=== PATIENT | male | born 1985 | race Caucasian/White ===

== ENCOUNTER → 2022-08-27 07:13 | Outpatient (CLI) | payer OTHER, SELFPAY ==
[2022-08-27 08:06] LABS: Add Manual Diff / Slide Review NO; Basophils Absolute Auto 100 /uL (0-100); Basophils Percent Auto 0.8 % (0-2); Eosinophils Absolute Auto 200 /uL (0-450); Eosinophils Percent Auto 2.4 % (2-4); Hematocrit 44.7 % (41-53); Hemoglobin 15.2 g/dL (13.5-17.5); Lymphocytes Absolute Auto 2100 /uL (1100-4500); Lymphocytes Percent Auto 28.2 % (25-40); Mean Corpuscular HGB Conc 33.9 % (30-36); Mean Corpuscular Volume 85.6 fL (80-100); Monocytes Absolute Auto 600 /uL (0-900); Monocytes Percent Auto 8.6 % (3-14); Neutrophils Absolute Auto 4400 /uL (1500-7000); Platelet Count 301 X10^3/uL (150-400); Red Blood Cell Count 5.22 X10^6/uL (4.5-5.9); Red Cell Distribution Width 12.9 % (11.6-14.8); White Blood Cell Count 7.3 X10^3/uL (4.5-11.0)
[2022-08-27 08:26] LABS: Alanine Aminotransferase 26 IU/L (<50); Albumin 4.1 g/dL (3.5-5.0); Albumin Globulin Ratio 1.4 (1.0-2.8); Alkaline Phosphatase 67 U/L (38-126); Aspartate Aminotransferase 24 IU/L (17-59); BUN Creatinine Ratio 12.6 (6-22); Bilirubin Total 0.5 mg/dL (0.2-1.3); Blood Urea Nitrogen 13 mg/dL (9-20); Calcium 9.2 mg/dL (8.4-10.2); Carbon Dioxide 28 mmol/L (22-32); Chloride 102 mmol/L (98-107); Cholesterol 161 mg/dL (140-199); Estimated Glomerular Filt Rate > 60 mL/min (>60); Globulin 2.9 g/dL (1.7-4.1); Glucose 94 mg/dL (70-100); HDL Cholesterol 28 mg/dL (40-60); HEMOLYSIS < 15 (0-50); LDL Cholesterol Calculated 101 mg/dL (<100); Potassium 4.2 mmol/L (3.4-5.1); Sodium 139 mmol/L (137-145); Triglycerides 159 mg/dL (35-150)
== END ==
PROVIDERS: PCP Family Medicine; Referring Provider Family Medicine; Visit Provider Family Medicine
DX: E78.5 Hyperlipidemia, unspecified (principal)
CPT/HCPCS: 36415; 80053; 80061; 85025

== ENCOUNTER 2022-12-09 07:07 | Emergency (ER) | payer OTHER, SELFPAY ==
[2022-12-09 07:29] VITALS: BP 132/78; PULSE 77; RESP 18; TEMP 36.8; O2SAT 99; BMI 26.4
--- NOTE | 2022-12-09 07:36 | ED.NECK ---
HPI - Neck Pain/Injury General Chief Complaint: Neck Pain/Injury Stated Complaint: internal neck pain T-4 Time Seen by Provider: 12/09/22 07:19 Source: patient Mode of arrival: Family Vehicle Limitations: no limitations History of Present Illness HPI Narrative: Patient is an otherwise healthy 37-year-old male who is here for evaluation of a swelling to the left side of his neck. It has been there for the past 4 days. It is somewhat tender to palpation. He thinks that maybe a lymph node. He denies fevers, sore throat, ear pain, problems breathing or other upper respiratory tract infection like symptoms. Has not tried anything for symptoms prior to arrival. Related Data Home Medications Medication Instructions Recorded Confirmed No Known Home Medications 06/20/22 06/20/22 Allergies Allergy/AdvReac Type Severity Reaction Status Date / Time No Known Drug Allergies Allergy Unverified 06/20/22 09:09 Review of Systems Eyes Eyes: Reports system reviewed and no additional complaints, except as documented ENT Ears, Nose, Mouth, and Throat: Reports system reviewed and no additional complaints, except as documented Respiratory Respiratory: Reports system reviewed and no additional complaints, except as documented Integumentary/Breasts Skin/Breast: Reports system reviewed and no additional complaints, except as documented Patient History Medical History Borderline hyperlipidemia Social History Smoking Status: Never smoker alcohol intake: current (2 drinks per month ) substance use type: does not use Smoking Status: Never smoker alcohol intake frequency: holidays/special occasions only Substance Use Type: does not use Exam Initial Vital Signs Initial Vital Signs: Vital Signs Temperature 98.2 F 12/09/22 07:29 Pulse Rate 77 12/09/22 07:29 Respiratory Rate 18 12/09/22 07:29 Blood Pressure 132/78 12/09/22 07:29 Pulse Oximetry 99 12/09/22 07:29 Oxygen Delivery Method 12/09/22 07:29 HENMT Head: normal to inspection and normocephalic Ears: TM's normal bilaterally Mouth: oral mucosae normal and moist mucous membranes Throat: posterior oropharynx normal Neck Lymphatic: lymphadenopathy (Left-sided submandibular lymphadenopathy) Skin General: no rashes or lesions noted Neuro General: patient alert, patient awake, patient oriented x3 and moves all extremities Speech: speech normal Extrem General: normal to inspection and capillary refill normal Course Vital Signs Vital signs: Vital Signs - 8 hr 12/09/22 07:29 Temperature 98.2 F Pulse Rate 77 Respiratory Rate 18 Blood Pressure 132/78 Pulse Oximetry 99 Oxygen Delivery Method Room Air MDM - Neck Pain/Injury Differential Diagnosis Differential diagnosis: Likely other (Lymphadenopathy, cancer, abscess and others) MDM Narrative Medical decision making narrative: History and physical exam is consistent with left-sided submandibular lymphadenopathy. No specific source of infection found. No indication for antibiotics. Provided reassurance to the patient. We did discuss return precautions and follow-up instructions. He expressed understanding and agreement. Discharge Plan Departure Patient Disposition: Home Clinical Impression: Lymphadenopathy Instructions: DI for Lymphadenopathy Activity Restrictions/Additional Instructions: High Would suspect improvement of your symptoms over the next couple days. You can take Tylenol or ibuprofen needed. Sometimes warm compresses will help. Return to the emergency department for new or worsening symptoms. Prescriptions: No Action No Known Home Medications Referrals: Jose Donahue DO [Primary Care Provider] - Stand Alone Forms: Patient Portal/API
== END 2022-12-09 07:47 | disposition home or self-care (01) ==
PROVIDERS: Emergency Provider Emergency Medicine; PCP Family Medicine
DX: R59.1 Generalized enlarged lymph nodes (principal)
CPT/HCPCS: 99281

== ENCOUNTER 2023-02-21 20:21 | Emergency (ER) | payer OTHER, SELFPAY ==
[2023-02-21 20:30] VITALS: BP 154/92; PULSE 83; RESP 20; TEMP 36.7; O2SAT 100; BMI 26.4
--- NOTE | 2023-02-21 20:38 | DI.RAD.S_ITS ---
PROCEDURE: XR FOOT RT MIN 3V INDICATIONS: pain and swelling due to fall TECHNIQUE: 3 views of the foot were acquired. COMPARISON: None. FINDINGS: Bones: No dislocations. No suspicious bony lesions. There is a definite transverse fracture across the base of the 4th metatarsal bone, and almost certainly an additional fracture is present but more subtle across the base of the 3rd metatarsal bone. Soft tissues: No tibiotalar joint effusion. Achilles tendon appears normal. IMPRESSION: Transverse fractures at the base of the 3rd and 4th metatarsal bones. Dictated by: Onel Baker M.D. on 02/21/2023 at 20:58 Approved by: Onel Baker M.D. on 02/21/2023 at 21:00
--- NOTE | 2023-02-21 21:06 | ED.LOWEXIN ---
HPI - Extremity Injury (Lower) General Chief Complaint: Extremity Injury, Lower Stated Complaint: GLF R foot injuried 30min ago Time Seen by Provider: 02/21/23 21:06 Source: patient Mode of arrival: Wheelchair History of Present Illness HPI Narrative: This is a healthy 37-year-old male who was walking up his steps at home, he states fell backwards as his 3 children were sort of running around him he tried to [place] and not step on his youngest who is about a year old and fell backwards. He landed on his buttocks. He has pain in his right foot. He has a little bit of tailbone pain but states it is mild. Denies hitting his head, no headache, no neck pain, no back pain. No chest pain shortness of breath. States was not knocked out. No other GI or urinary symptoms. Patient denies any numbness or tingling. No weakness. He has pain with weight-bearing and swelling over the dorsum of the foot. Patient states no daily medications. No known drug allergies. No tobacco, alcohol or illicit. Related Data Previous Rx's Medication Instructions Recorded hydrocodone 5 mg-acetaminophen 325 1 tab PO Q6H PRN pain #10 tabs 02/21/23 mg tablet Allergies Allergy/AdvReac Type Severity Reaction Status Date / Time No Known Drug Allergies Allergy Unverified 01/08/23 15:25 Review of Systems Review of Systems ROS Unobtainable: All systems reviewed & are unremarkable except as noted in HPI and below Patient History Medical History Borderline hyperlipidemia Social History Smoking Status: Never smoker alcohol intake: current (2 drinks per month ) substance use type: does not use Smoking Status: Never smoker alcohol intake frequency: other Substance Use Type: does not use Exam Narrative Exam Narrative: GENERAL: Alert and oriented x three, well-appearing male in mild distress. HEENT: Head normocephalic, atraumatic, EOMI, pupils reactive, face symmetric, moist mucous membranes NECK: Supple, full range of motion CARDIOVASCULAR: Regular rate and rhythm without murmurs, rubs or gallops. RESPIRATORY: Breath sounds equal bilaterally, no wheezes rales or rhonchi. ABDOMEN: Soft, nontender. Normoactive bowel sounds all 4 quadrants. No guarding or rebound, rigidity, no mass : No CVA tenderness EXTREMITIES: Normal range of motion, no clubbing. Patient has swelling over the dorsum of the foot. No ecchymosis. The compartment is not tight. Patient has pain over the 3rd and 4th metatarsals. He has no tenderness of the right thigh, knee, tib-fib or lateral malleoli. No tenderness over each toe. He is sensation in each toe and throughout his foot. Cap refills less than 2 seconds in all 5 toes. No other discoloration there is some slight erythema. Neurovascularly intact NEUROLOGICAL: Cranial nerves II through XII grossly intact. Moving all extremities SKIN: Warm, dry, no petechiae, no rashes or lesions. Initial Vital Signs Initial Vital Signs: Vital Signs Temperature 98.1 F 02/21/23 20:30 Pulse Rate 83 02/21/23 20:30 Respiratory Rate 20 02/21/23 20:30 Blood Pressure 154/92 H 02/21/23 20:30 Pulse Oximetry 100 02/21/23 20:30 Oxygen Delivery Method Room Air 02/21/23 20:30 Course Orders Ordered: ED Orders 02/21/23 20:38 XR foot RT min 3V Stat Discontinued Medications Acetaminophen (Acetaminophen 325 Mg Tablet) 975 mg PO NOW ONE Stop: 02/21/23 21:20 Last Admin: 02/21/23 21:24 Dose: 975 mg Documented By: RAFA Hydrocodone Bitart/Acetaminophen (Hydrocodone/Acet 5/325 Prepack) 1 bottle MISC SEEINSTR ONE Stop: 02/21/23 21:34 Last Admin: 02/21/23 21:48 Dose: 1 bottle Documented By: RAFA Vital Signs Vital signs: Vital Signs - 8 hr 02/21/23 20:30 02/21/23 21:59 Temperature 98.1 F Pulse Rate 83 80 Respiratory Rate 20 20 Blood Pressure 154/92 H 136/88 Pulse Oximetry 100 98 Oxygen Delivery Method Room Air Room Air MDM - Extremity Injury (Lower) Imaging Data Extremity x-ray #1: Radiologist's Impression: Close Foot X-Ray (Signed) Onel Baker - 02/21/23 Launch?[address] [address] XRay Report Signed Patient: Onel Marti MR#: [id number] : 1985 Acct:[id number] Age/Sex: 37 / M Date of Service: 02/21/23 Loc: ED Accession Number: [id number] ?? Procedure: XR foot RT min 3V Ordering Provider: Margaret Man D.O. PROCEDURE:? XR FOOT RT MIN 3V ? INDICATIONS:? pain and swelling due to fall ? TECHNIQUE:? 3 views of the foot were acquired.? ? COMPARISON:? None. ? FINDINGS:? ? Bones:? No dislocations.? No suspicious bony lesions.? There is a definite transverse fracture across the base of the 4th metatarsal bone, and almost certainly an additional fracture is present but more subtle across the base of the 3rd metatarsal bone. ? Soft tissues:? No tibiotalar joint effusion.? Achilles tendon appears normal.? ? ? IMPRESSION:? Transverse fractures at the base of the 3rd and 4th metatarsal bones. ? ? Dictated by: Onel Baker M.D. on 02/21/2023 at 20:58 ? ? Approved by: Onel Baker M.D. on 02/21/2023 at 21:00?? MDM Narrative Medical decision making narrative: This is a 37-year-old healthy male who had a fall down several stairs. Landed on his buttocks and sort of slid with his foot backwards. Patient's foot x-ray shows 3rd and 4th metatarsal fracture without displacement, patient is neurovascularly intact he has swelling but no signs of compartment syndrome foot is soft and has good cap refill with normal sensation throughout. Patient has some mild tailbone pain but states it is minimal. Patient case was discussed with Dr. Briceno from Orthopedic surgery. He recommends follow up with Dr. Puga, ortho boot, toe-touch weight-bearing and pain control. Patient is to call for follow-up appointment. Discharge Plan Departure Patient Disposition: Home Clinical Impression: Closed fracture of third metatarsal bone, Closed fracture of fourth metatarsal bone Instructions: DI for Foot Fracture Activity Restrictions/Additional Instructions: Please follow-up with orthopedic surgery, call Thursday morning to set up an appointment. You can take Tylenol up to a 1000 mg every 6 hours, if in adequate for pain you can take Porter (1 tablet has 325mg tylenol in it) instead of Tylenol but not at the same time. Maximum amount of Tylenol or acetaminophen in 24 hours is 4000 mg. You may take Porter 1-2 tablets every 6 hours needed for pain. This medication can make you sleepy do not drive, perform hazardous activities or make any major decisions while taking it. This medication will make you constipated please take a stool softener once to twice daily until stools are soft and regular. Prescription sent to [facility]. Splint Care: Keep splint clean and dry. Elevated affected body part to decrease swelling. OK to use ice pack on the affected body part. Use for 15-20 minutes each time, for 5-6x per day. If you develop worsening pain, numbness, tingling, discoloration of the affected body part, loosen the splint by loosening the EULA wrap, and either see your doctor for an urgent re-assessment, or return to the Emergency Department. Return to the Emergency Department for any new or worsening symptoms. Prescriptions: New hydrocodone-acetaminophen 5-325 mg tablet 1 tab PO Q6H PRN (Reason: pain) Qty: 10 0RF Referrals: Hayley Porter MD [Physician] - Jose Donahue DO [Primary Care Provider] - Stand Alone Forms: Patient Portal/API, Work Release Note
[2023-02-21] MEDS: ACETAMINOPHEN 325 MG TABLET 975 MG PO (21:24)
[2023-02-21] MEDS: HYDROCODONE/ACET 5/325 PREPACK 1 BOTTLE MISC (21:48)
[2023-02-21 21:59] VITALS: BP 136/88; PULSE 80; RESP 20; O2SAT 98
--- NOTE | 2023-02-22 13:09 | PC.NURSE ---
Returned phone call to pt who had questions about pain control, tylenol and prescribed pain medication. Reviewed instructions w/ verbalized understanding. Encouraged to return if any concerns, worsening and f/u as needed and indicated.
== END 2023-02-21 22:02 | disposition home or self-care (01) ==
PROVIDERS: Emergency Provider Emergency Medicine; PCP Family Medicine
DX: S92.331A Displaced fracture of third metatarsal bone, right foot, initial encounter for closed fracture (principal); S92.341A Displaced fracture of fourth metatarsal bone, right foot, initial encounter for closed fracture; W10.9XXA Fall (on) (from) unspecified stairs and steps, initial encounter
CPT/HCPCS: 73630; 99283; 99284

== ENCOUNTER → 2023-03-04 06:45 | Outpatient (CLI) | payer OTHER, SELFPAY ==
--- NOTE | 2023-03-04 07:04 | DI.CT.S_ITS ---
PROCEDURE: CT FOOT RIGHT WITHOUT CON INDICATIONS: LISFRANC INJURY/SURGERY PLANNING TECHNIQUE: Noncontrast 1-1.5 mm axial sections acquired from above the tibiotalar joint to the bottom of the calcaneus, with coronal and sagittal reformats. COMPARISON: [facility], CR, XR FOOT RT MIN 3V, 02/21/2023, 20:35. [facility], CR, XR FOOT 3 VIEWS WEIGHT BEARING RIGHT, 02/24/2023, 9:21. FINDINGS: Image quality: Excellent. Bones: Transverse fracture involving plantar aspect of 2nd metatarsal base is seen with minimal inferior displacement at fracture site. Comminuted fracture involving 3rd metatarsal base is seen with fracture line extending to 3rd TMT joint space and slight dorsal and inferior displacement of fractured fragments. There is also an oblique fracture in through 4th metatarsal base with fracture line extending to 4th TMT joint space and minimal medial displacement of fractured fragment. No other fracture or dislocation is seen. No suspicious bony lesions. Soft tissues: Significant soft tissue edema and swelling over dorsal aspect of 2nd through 4th metatarsal bases are seen. No abnormal soft tissue calcifications. No full-thickness extensor or flexor tendon rupture. Peroneus tendons are grossly intact. IMPRESSION: 1. Acute fractures involving 2nd through 4th metatarsal bases as described in detail above. 2. No dislocation. No suspicious intraosseous lesion. 3. Mild soft tissue swelling over dorsal aspect of 2nd through 4th metatarsal bases. No abnormal soft tissue calcifications. Dictated by: Sp Foster M.D. on 03/04/2023 at 12:09 Approved by: Sp Foster M.D. on 03/04/2023 at 12:12
== END ==
PROVIDERS: PCP Family Medicine; Referring Provider Orthopaedic Surgery Foot and Ankle Surgery; Visit Provider Orthopaedic Surgery Foot and Ankle Surgery
DX: S92.321A Displaced fracture of second metatarsal bone, right foot, initial encounter for closed fracture (principal); S92.331A Displaced fracture of third metatarsal bone, right foot, initial encounter for closed fracture; S92.341A Displaced fracture of fourth metatarsal bone, right foot, initial encounter for closed fracture; M79.89 Other specified soft tissue disorders; X58.XXXA Exposure to other specified factors, initial encounter
CPT/HCPCS: 73700

== ENCOUNTER 2023-03-13 09:42 | Day surgery (SDC) | payer OTHER, SELFPAY ==
[2023-03-10 15:13] VITALS: BMI 26.4
--- NOTE | 2023-03-13 | DI.RAD.S_ITS ---
PROCEDURE: XR FOOT RT 2V INDICATIONS: ORIF RT FOOT TECHNIQUE: 3 views of the foot were acquired. COMPARISON: [facility], CR, XR FOOT 3 VIEWS WEIGHT BEARING RIGHT, 02/24/2023, 9:21. FINDINGS: Intraoperative C-arm images demonstrate ORIF of 2nd and 3rd metatarsal bases with placement of surgical fixation plate and multiple associated fixation screws. IMPRESSION: Intraoperative imaging during placement of fixation hardware at the 2nd and 3rd metatarsal bases. Dictated by: Mike ESPINOSA Interpreted: Karen Pennington MD on 03/13/2023 at 13:24 Approved by: Karen Pennington M.D. on 03/13/2023 at 15:51
[2023-03-13 09:55] VITALS: BP 118/78; PULSE 66; RESP 20; TEMP 36.6; O2SAT 97; BMI 26.4
[2023-03-13] MEDS: LACTATED RINGERS 1,000 ML 42 ML IV (10:27)
[2023-03-13] MEDS: ACETAMINOPHEN 325 MG TABLET 975 MG PO (10:28)
[2023-03-13] MEDS: PREGABALIN 75 MG CAPSULE PO (10:28)
--- NOTE | 2023-03-13 11:21 | PM.PREOP ---
Pre-operative Note Interval Note History & Physical reviewed/Exam performed by Physician: Yes Changes to H&P: No
[2023-03-13] MEDS: MIDAZOLAM 2 MG/2 ML VIAL IV (11:34)
--- NOTE | 2023-03-13 11:40 | SUR.PREOP ---
nerve block time out 1133, start time 1134, end time 1137.
[2023-03-13] MEDS: CEFAZOLIN 2 GM/100 ML PREMIX 100 ML IV (11:50)
[2023-03-13] MEDS: THROMBIN (RECOMBINANT) 5,000 UNIT VIAL 5000 UNIT TOP (13:13)
[2023-03-13] MEDS: BUPIVACAINE 0.25% (PF) 30 ML, EPINEPHrine 0.15 MG INJ (13:57)
[2023-03-13 14:10] VITALS: BP 114/77; PULSE 74; RESP 16; TEMP 36.3; O2SAT 99
[2023-03-13 14:16] VITALS: BP 115/77; PULSE 78; RESP 16; O2SAT 98
[2023-03-13 14:27] VITALS: BP 114/77; PULSE 82; RESP 16; TEMP 36.3; O2SAT 98
[2023-03-13 14:39] VITALS: BP 122/82; PULSE 78; RESP 16; TEMP 36.4; O2SAT 99
--- NOTE | 2023-03-13 14:39 | P.OP_ITS ---
Operative Date/Time/Diagnoses Date of procedure: 03/13/23 Time of procedure: 14:40 Pre-op diagnosis: Dislocation tarsometatarsal joint right foot Closed displaced fracture intra-articular 2nd metatarsal Closed intra-articular fracture 3rd metatarsal Closed nondisplaced intra-articular fracture 4th metatarsal All right foot Post-op diagnosis: same Procedure & Clinicians Procedure: Open reduction internal fixation right foot tarsometatarsal dislocation, Lisfranc CPT code 47617 right Open reduction internal fixation right foot 2nd metatarsal fracture CPT code 76251 Open reduction internal fixation right foot 3rd metatarsal fracture CPT code 52664 Closed treatment right 4th metatarsal fracture CPT code 38372 Same procedure as scheduled: Yes Indications: Patient is a 37-year-old male that sustained a Lisfranc variant fracture dislocation to his right foot involving fractures of the base of the 2nd 3rd and 4th metatarsals with the 2nd metatarsal fracture involving the Lisfranc ligament. Patient was indicated for stabilization of his Lisfranc fracture. The risks benefits and alternatives were discussed with the patient. We discussed ORIF and fusion. Given his young age and the fracture pattern I have recommended open reduction internal fixation. We discussed typical staged hardware removal 6 months later. The risks and benefits of the procedure have been discussed with the patient and given the opportunity to ask questions. The risks of surgery include but are not limited to infection, malunion, nonunion, persistence of pain, damage to nerves and blood vessels, posttraumatic arthritis, DVT, PE, cardiopulmonary complications and . The patient expressed a thorough understanding of the risks and benefits of surgery and has elected to proceed. Consent was signed in the office. Surgeon: Hayley Porter Click Yes if Unassisted: Yes Anesthesia Type: General, Peripheral nerve block and Local Operative Notes Findings: Instability Lisfranc articulation between the 2nd metatarsal base and medial cuneiform. Intra-articular fractures 2nd 3rd and 4th metatarsal bases. Nondisplaced 4th metatarsal base fracture. Lisfranc articulation was stabilized with a 4-0 cannulated screw. Second and 3rd metatarsal intra-articular fractures were stabilized with bridge plating using a medium Lisfranc plate from the paragon 28 set. Closure Type: primary Specimen(s): none sent Prosthetic devices, grafts, tissues, transplants, or devices: [place] 28 medium Lisfranc plate with 2.7 locking screws. 4.0 cannulated lag screw 36 mm Estimated Blood Loss (mL): 30 Blood products transfused: none Tourniquet time (min): 64 Procedure in detail: Patient was seen in the preoperative area the site of surgery was marked informed consent confirmed. The patient was brought back to the operating room by the anesthesia team. A regional block was placed by the anesthesia team for postoperative pain control. Patient was positioned in the supine position operative table. General anesthetic was administered. Bony prominences were well padded. Well-padded thigh tourniquet was placed. The operative extremity was prepped and draped in the standard sterile fashion. A formal time-out procedure was performed confirming the patient's side and site of surgery administration of appropriate preoperative antibiotic. All were in agreement. Attention turned to the right lower extremity. The Esmarch was used for exsanguination the tourniquet raised on the thigh to 250 mmHg. The C-arm was brought in and the level of the 2nd and 3rd TMT bases was marked out on the foot. An incision over the lateral aspect of the 2nd metatarsal was made lateral to the neurovascular bundle. This was dissected down carefully to the level of the joints. The 2nd and 3rd TMT joints were exposed and the proximal 3rd TMT fracture was identified and nondisplaced. The 4th TMT fracture also remained nondisplaced. Third TMT fracture into the 3rd tarsometatarsal joint did demonstrate instability on EUA as well as instability as the Lisfranc ligament on EUA. The 2nd and 3rd TMT bases were anatomically reduced and bridge plated with a medium plate from the paragon 28 tray. This was provisionally pinned with olive wires and then locking screws were placed. Once this was completed attention was turned to the Lisfranc articulation between the 2nd TMT base and medial cuneiform. The lewis fracture was plantar not exposed. A large Carson clamp was used to reduce the Lisfranc articulation then a wire from the cannulated screw set was drilled across and measured and a 4-0 cannulated screw was placed in a lag technique from the 2nd metatarsal base to the medial cuneiform. This was checked in multiple planes. Once this was complete attention again returned to the 4th metatarsal base fracture which were maintained in nondisplaced alignment and was treated closed. At this point the tourniquet was released. Hemostasis was achieved. There was some bleeding from a dorsal pedis branch of the medial base of the 2nd metatarsal that was identified snapped and tied off. Gelfoam and thrombin were also used to aid in hemostasis. Once this was completed the wound was thoroughly irrigated and closed in a layered fashion with 3-0 Vicryl 4-0 Monocryl and 4-0 nylon suture. A sterile dressing was placed with Xeroform gauze Webril and a posterior and U splint. The patient was woken from anesthesia and taken to recovery room in good condition. There were no immediate complications from this procedure. All counts were correct. Complications: none Post-operative Condition: stable Disposition: PACU Plan for aftercare: Nonweightbearing x6 weeks. May be touchdown for balance. Start aspirin 325 mg daily postop day 1 for DVT prophylaxis. Elevate of the heart level or above for 2 weeks to help with swelling. Follow-up in 2 weeks in Orthopedic Clinic for wound check. After 6 weeks nonweightbearing we will begin progressive weight- bearing in a boot with an arch support. Once full weight-bearing in the boot 1 0-12 weeks postoperatively will wean to a shoe with arch support
== END 2023-03-13 15:15 | disposition home or self-care (01) ==
PROVIDERS: PCP Family Medicine; Referring Provider Orthopaedic Surgery Foot and Ankle Surgery; Visit Provider Orthopaedic Surgery Foot and Ankle Surgery
PROC: (CPT 28485; principal; 2023-03-13 11:15)
DX: S93.324A Dislocation of tarsometatarsal joint of right foot, initial encounter (principal); S92.341A Displaced fracture of fourth metatarsal bone, right foot, initial encounter for closed fracture; S92.331A Displaced fracture of third metatarsal bone, right foot, initial encounter for closed fracture; S92.321A Displaced fracture of second metatarsal bone, right foot, initial encounter for closed fracture; W10.8XXA Fall (on) (from) other stairs and steps, initial encounter; Y92.009 Unspecified place in unspecified non-institutional (private) residence as the place of occurrence of the external cause; G89.18 Other acute postprocedural pain
CPT/HCPCS: 28615; 28485 ×2; 28470; 64450; 73620; 76000; J0171; J0690; J1100; J2250; J2405; J2704; J3010

== ENCOUNTER → 2023-07-31 08:59 | Outpatient (CLI) | payer OTHER, SELFPAY ==
[2023-07-31 10:33] LABS: Add Manual Diff / Slide Review NO; Basophils Absolute Auto 0 /uL (0-100); Basophils Percent Auto 0.5 % (0-2); Eosinophils Absolute Auto 100 /uL (0-450); Eosinophils Percent Auto 1.6 % (2-4); Hematocrit 42.5 % (41-53); Hemoglobin 14.8 g/dL (13.5-17.5); Lymphocytes Absolute Auto 1900 /uL (1100-4500); Lymphocytes Percent Auto 25.4 % (25-40); Mean Corpuscular HGB Conc 34.7 % (30-36); Mean Corpuscular Hemoglobin 30.4 PG (26-34); Mean Corpuscular Volume 87.6 fL (80-100); Monocytes Absolute Auto 600 /uL (0-900); Monocytes Percent Auto 8.7 % (3-14); Neutrophils Absolute Auto 4700 /uL (1500-7000); Neutrophils Percent Auto 63.8 % (50-75); Platelet Count 334 X10^3/uL (150-400); Red Blood Cell Count 4.85 X10^6/uL (4.5-5.9); Red Cell Distribution Width 12.9 % (11.6-14.8); White Blood Cell Count 7.3 X10^3/uL (4.5-11.0)
[2023-07-31 10:53] LABS: Alanine Aminotransferase 29 IU/L (<50); Albumin 4.5 g/dL (3.5-5.0); Albumin Globulin Ratio 1.5 (1.0-2.8); Alkaline Phosphatase 65 U/L (38-126); Aspartate Aminotransferase 23 IU/L (17-59); Blood Urea Nitrogen 13 mg/dL (9-20); Calcium 9.7 mg/dL (8.4-10.2); Carbon Dioxide 25 mmol/L (22-32); Chloride 102 mmol/L (98-107); Cholesterol 195 mg/dL (140-199); Estimated Glomerular Filt Rate > 60 mL/min (>60); Globulin 3.1 g/dL (1.7-4.1); Glucose 93 mg/dL (70-100); HDL Cholesterol 36 mg/dL (40-60); HEMOLYSIS < 15 (0-50); LDL Cholesterol Calculated 132 mg/dL (<100); Potassium 4.7 mmol/L (3.4-5.1); Sodium 138 mmol/L (137-145); Total Protein 7.6 g/dL (6.3-8.2); Triglycerides 133 mg/dL (35-150)
[2023-07-31 11:21] LABS: TSH w/ Reflex to FT4 0.95 uIU/mL (0.47-4.68)
== END ==
PROVIDERS: PCP Family Medicine; Referring Provider Family Medicine; Visit Provider Family Medicine
DX: E78.5 Hyperlipidemia, unspecified (principal)
CPT/HCPCS: 36415; 80053; 80061; 84443; 85025

== ENCOUNTER 2023-08-12 20:46 | Emergency (ER) | payer OTHER, SELFPAY ==
[2023-08-12 20:50] VITALS: BP 124/77; PULSE 82; RESP 18; TEMP 36.9; O2SAT 100; BMI 25.1
[2023-08-12] MEDS: DOXYCYCLINE HYCLATE 100 MG TABLET PO (21:28)
--- NOTE | 2023-08-13 01:07 | ED.SKABFB ---
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 He states that he was cleaning up some of his kids toys and stubbed his toe a few weeks ago. He states for about the past week there has become increasing redness and some drainage from his middle toe. He denies any redness, pain or swelling of his foot or ankle otherwise. No systemic complaints such as fever or chills. Related Data Home Medications Medication Instructions Recorded Confirmed ibuprofen 400 mg tablet 800 mg PO Q8H 07/31/23 07/31/23 Previous Rx's Medication Instructions Recorded doxycycline hyclate 100 mg tablet 100 mg PO BID #20 tabs 08/12/23 Allergies Allergy/AdvReac Type Severity Reaction Status Date / Time No Known Drug Allergies Allergy Verified 07/31/23 07:57 Review of Systems Review of Systems Narrative: GENERAL: Denies chills, fatigue, malaise, fever, sweats. HEENT: Denies sinus pain, ear pain, sore throat, difficulty swallowing, dizziness. RESPIRATORY: Denies dyspnea, cough, wheezing, hemoptysis, sputum. CARDIOVASCULAR: Denies chest pain, palpitations, orthopnea, edema, GASTROINTESTINAL: Denies nausea, vomiting, abdominal pain, diarrhea, constipation, melena. : Denies dysuria, frequency, incontinence, hematuria, urinary retention. MUSCULOSKELETAL: See HPI SKIN: Denies rash, skin lesions, or other NEUROLOGIC: Denies weakness, headache, numbness, change in speech, confusion, seizures, incoordination. PSYCHIATRIC: No concerning psychosocial issues. 12 point review of systems is negative except for those stated above Patient History Medical History (Updated 08/12/23 @ 21:23 by Tahir Barba DO) Lisfranc fracture Borderline hypertension Recent shoulder injury Borderline hyperlipidemia Surgical History (Updated 03/13/23 @ 09:53 by Natali Castro RN) History of appendectomy Social History household members: spouse and children Smoking Status: Never smoker alcohol intake: current substance use type: does not use Smoking Status: Never smoker alcohol intake frequency: other Substance Use Type: does not use Exam Narrative Exam Narrative: GEN: AOx3 and in mild distress EYES: Pupils are equal, round, and reactive to light and accommodation. Extraoccular muscles are intact bilaterally. There is no subconjunctival hemorrhage or exudate. CHEST: Lungs are clear to auscultation bilaterally and free of wheezes, rales, or rhonchi. Heart rate is regular rhythm, there are no murmurs, clicks, rubs, or gallops. There is no chest wall tenderness. ABD: Abdomen is soft and nontender. There is no guarding or rebound. Bowel sounds are normal in all 4 quadrants. There is no mass or organomegaly. EXT: Right middle toe erythematous on its distal half, small amount of crusting drainage adjacent to the nail, no ongoing drainage or bleeding, no fluctuance or induration, no proximal involvement, no lymphangitis SKIN: Warm, pink, and dry. No erythema or rash Initial Vital Signs Initial Vital Signs: Vital Signs Temperature 98.5 F 08/12/23 20:50 Pulse Rate 82 08/12/23 20:50 Respiratory Rate 18 08/12/23 20:50 Blood Pressure 124/77 08/12/23 20:50 Pulse Oximetry 100 08/12/23 20:50 Oxygen Delivery Method Room Air 08/12/23 20:50 Course Orders Ordered: Discontinued Medications Doxycycline Hyclate (Doxycycline Hyclate 100 Mg Tablet) 100 mg PO NOW ONE Stop: 08/12/23 21:22 Last Admin: 08/12/23 21:28 Dose: 100 mg Documented By: RADHA Vital Signs Vital signs: Vital Signs - 8 hr 08/12/23 20:50 Temperature 98.5 F Pulse Rate 82 Respiratory Rate 18 Blood Pressure 124/77 Pulse Oximetry 100 Oxygen Delivery Method Room Air MDM - Skin/Abscess/Foreign Bdy MDM Narrative Medical decision making narrative: [38] year old patient presents with pain, redness and drainage from right middle toe Multiple etiologies for patient's symptoms considered including, but not limited to: [Paronychia versus abscess versus cellulitis versus other] Prior Charts reviewed in our EMR Primary Historian: patient Imaging reviewed: Deferred given extremely low likelihood of clinically significant underlying bony injury Patient's history and physical exam reassuring, there is redness and minimal swelling to the distal tip of right middle toe, no induration, fluctuance or ongoing drainage, no laceration noted, no obvious foreign body, low suspicion for bony involvement. Likely an infected wound allowed to worsen in the setting of his postsurgical neuropathy. We discussed certainly soaking in warm water and Epsom salts but elect to also use antibiotics given the surgical hardware in his foot. Findings and discharge diagnosis discussed with patient/family followed by verbalization of understanding Return precautions discussed with patient/family whom verbalize understanding of diagnosis and plan Discharge Plan Departure Patient Disposition: Home Clinical Impression: Cellulitis of toe, right Instructions: DI for Cellulitis -- Adult Activity Restrictions/Additional Instructions: *You have been diagnosed with [cellulitis and possible early abscess right middle toe.] *What to do: *Please continue to take your regular medications as directed. [x ] New medication prescriptions sent to your pharmacy: [ [facility]] [ ] New medication written as a paper prescription [ ] No new medications given *Please follow up with your primary care provider in 2-3 days, call for an appointment. Let them know you were seen in the Emergency Department and that we ask that you be seen in follow up. We will electronically transmit a record of today's note if your PCP is in our system * in addition to the antibiotics, as we discussed please consider soaking your right foot in warm water with Epsom salts once or twice daily *Return to Emergency Department if you should have any new, worsening or concerning symptoms, such as [fever greater than 101 F, shaking chills, worsening pain, persistent vomiting or other bothersome symptoms] Prescriptions: New doxycycline hyclate 100 mg tablet 100 mg PO BID Qty: 20 0RF No Action ibuprofen 400 mg tablet 800 mg PO Q8H Referrals: Jose Donahue DO [Primary Care Provider] - Stand Alone Forms: Patient Portal/API
== END 2023-08-12 21:32 | disposition home or self-care (01) ==
PROVIDERS: Emergency Provider Emergency Medicine; PCP Family Medicine
DX: L03.031 Cellulitis of right toe (principal)
CPT/HCPCS: 99283

== ENCOUNTER → 2024-06-08 10:22 | Outpatient (CLI) | payer OTHER, SELFPAY ==
[2024-06-09 13:43] LABS: Fecal Immunochemical Test Negative (Negative)
== END ==
LOC: LAB 10:23
PROVIDERS: PCP Family Medicine; Referring Provider Family Medicine; Visit Provider Family Medicine
DX: Z12.11 Encounter for screening for malignant neoplasm of colon (principal)
CPT/HCPCS: 82274